=== PATIENT | male | born 1945 | race Caucasian/White ===

== ENCOUNTER 2023-04-03 20:11 | Inpatient (IN) | payer MEDICARE, OTHER, SELFPAY ==
[2023-04-03] VITALS (12 sets, daily range): BP systolic 119–162; BP diastolic 80–124; BMI 23.7; BMI 22.7
[2023-04-03 17:05] LABS: % Basophils 0.8 % (0-2); % Eosinophils 0.7 % (0-6); % Immature Granulocytes 0.3 % (0-0.5); % Monocytes 12.5 % (1.7-9.3); % Neutrophils 63.7 % (42.2-75.2); Absolute Basophils 0.1 10^3/uL (0-0.2); Absolute Eosinophils 0.1 10^3/uL (0-0.7); Absolute Lymphocytes 1.7 10^3/uL (1.2-3.4); Absolute Monocytes 0.9 10^3/uL (0.1-0.6); Absolute Neutrophils 4.8 10^3/uL (1.4-6.5); Hematocrit 42.3 % (39.0-52.0); Hemoglobin 14.8 g/dL (13.0-18.0); Mean Corpuscular Hgb 33.6 pg (27.0-31.0); Mean Corpuscular Volume 96.1 fL (80.0-94.0); Mean Platelet Volume 9.1 fL (7.4-10.4); Nucleated Red Blood Cells % 0 % (-); Platelet Count 317 10^3/uL (130-400); Red Cell Dist. Width 13.4 % (11.5-14.5); White Blood Cell Count 7.6 10^3/uL (4.8-10.8)
[2023-04-03 17:14] LABS: INR 1.33; PT 16.6 Sec (11.4-14.6)
[2023-04-03 17:21] LABS: ALT (SGPT) 122 U/L (0-50); AST (SGOT) 71 U/L (17-59); Albumin 3.9 g/dl (3.5-5.0); Alkaline Phosphatase 70 U/L (38-126); Blood Urea Nitrogen 30 mg/dl (9-20); Calcium 9.8 mg/dl (8.4-10.2); Carbon Dioxide 25 mmol/L (22-30); Chloride 99 mmol/L (98-107); Estimated Creatinine Clearance 55 ml/min; Glucose 125 mg/dl (70-99); Potassium 4.8 mmol/L (3.5-5.1); Sodium 137 mmol/L (135-145); Total Bilirubin 1.2 mg/dl (0.2-1.3); Total Protein 6.4 g/dl (6.3-8.2); eGFR > 60.00
[2023-04-03] MEDS: CARDIZEM 125 IV (17:31)
[2023-04-03] MEDS: CARDIZEM 10 MG IV (17:31)
[2023-04-03 17:35] LABS: Troponin I 0.044 ng/ml
[2023-04-03 18:13] LABS: NT-proBNP 7380 pg/ml
[2023-04-03] MEDS: LASIX 40 MG IV (19:15)
--- NOTE | 2023-04-03 19:56 | HPS.HSE ---
Family Physician
-
Family Physician: Idalia Barkdsale
Chief Complaint
-
SOB
History of Present Illness
Patient is a 77y M with PMH significant for prior episode of A-Fib who presents to ED complaining of SOB and SCOTT. Patient states that he initially developed symptoms of SOB and SCOTT about 1 1/2 weeks ago. He noted occasional chest pressure or
heaviness. No palpitations. No diaphoresis, N/V, etc. Patient was seen by his PCP last week and noted to be in A-Fib. He was started on metoprolol and Eliquis and referred for outpatient Cardiology evaluation. Patient states that his SOB seemed
to progress and he presented to [facility] on Friday. He was admitted overnight and treated with IV medications - including diuretics. He states that he felt well on Friday and Friday of this week. However, his SOB and SCOTT returned
yesterday and were worse today, prompting him to present to this ED for evaluation.
Patient was noted to be in A-Fib with initial rates in the 140s.
Patient states that he had an isolated episode of A-Fib in 2020. He states that he had chemical cardioversion at that time and has had no issues since.
He has no other chronic health issues and takes no other prescription medications.
Medical History
Past Medical History
Past Medical History: Reports Other
Additional Past Medical History:
Paroxysmal Atrial Fibrillation
CHF - Unknown Type
Past Surgical History: Reports Other
Additional Past Surgical History:
Herniorrhaphy
Social History
Tobacco: Non-smoker
Alcohol: None
Drug: None
Family History
Family History: Not pertinent
Allergies / Home Medications
Allergies reflects when Allergies were last updated in [employer]
Home Medications with original date entered in [employer]
Allergy/Medication List:
Allergies
Allergy/AdvReac Type Severity Reaction Status Date / Time
No Known Allergies Allergy Unverified 04/03/23 16:35
Home Medications
apixaban 5 mg tablet 5 mg PO BID 04/03/23
metoprolol succinate 50 mg tablet,extended release 24 hr 50 mg PO DAILY 04/03/23
Review of Systems
-
History Source: Patient
A 12 point ROS was completed and negative except as noted: Yes
Constitutional: Reports Fatigue; Denies Fever or Chills
EENT: Denies Sore Throat
Respiratory: Reports Trouble Breathing; Denies Cough
Cardiac: Reports Chest Pain; Denies Diaphoresis, Palpitations or Syncope
Abdomen/GI: Denies Abdominal Pain, Nausea, Vomiting or Diarrhea
: Denies Dysuria or Frequency
Musculoskeletal: Denies Edema
Neurological: Denies Dizzy or Headache
Psych: Denies Depression or Anxiety
Physical Exam
Vital Signs
Vital Signs
Temp Pulse Resp BP Pulse Ox
97.8 F 101 30 134/103 91
04/03/23 16:36 04/03/23 19:15 04/03/23 17:45 04/03/23 19:15 04/03/23 17:45
Physical Exam
General: Other (77y M in no acute distress.)
HEENT: Moist mucous membranes and PERRLA
Respiratory: Other (Bibasilar rales about 1/3 up.)
Cardiac: S1/S2, Irregular Rhythm and Tachycardia; No Murmur
GI: Soft, Non Tender, Non Distended and Normal Bowel Sounds
Musculoskeletal: No Clubbing, No Cyanosis and No Edema
Neuro: AO x 3
Laboratory Results
-
04/03/23 16:57
04/03/23 17:24
Laboratory Results
PT 16.6 Sec (11.4-14.6) H 04/03/23 16:57
INR 1.33 04/03/23 16:57
APTT 31.0 Sec (23.4-35.0) 04/03/23 16:57
Total Bilirubin 1.2 mg/dl (0.2-1.3) 04/03/23 16:57
AST 71 U/L (17-59) H 04/03/23 16:57
ALT 122 U/L (0-50) H 04/03/23 16:57
Alkaline Phosphatase 70 U/L (38-126) 04/03/23 16:57
Troponin I Cancelled 04/03/23 17:24
Impression/Plan
-
A/P: Patient is a 77y M with PMH significant for prior A-Fib who presents to ED complaining of SOB and SCOTT.
Paroxysmal Atrial Fibrillation
- Admit for further evaluation and treatment.
- Diltiazem gtt started in the ED - taper per protocol.
- Continue daily metoprolol and titrate dosing as needed for rate control.
- Continue Eliquis for stroke risk reduction.
- Cardiology evaluation for additional options / recommendations.
Acute on Chronic HF - Unknown Type
Acute Hypoxemic Respiratory Insufficiency secondary to the above.
- Exam, CXR and BNP all consistent with pulmonary edema - likely secondary to A-Fib / RVR.
- Rate +/- rhythm control as noted above.
- Continue IV Lasix and follow I/Os, daily weights, etc.
- Follow for clinical improvement and wean O2 as able.
Abnormal Troponin
- Initial troponin is 0.044 with no prior or comparison.
- No evident ischemia on EKG.
- Patient does report chest pressure.
- Follow serial troponin and rule acute underlying ischemia.
- Daily ASA for now.
Elevated BP
- Likely secondary to volume overload.
- Patient denies any HTN / any medication use at all prior to recent issues /A-Fib.
- Follow for changes with diuresis and rate control meds.
Abnormal LFTs
- Likely secondary to CHF / passive congestion.
- Follow for changes with diuresis.
DVT Prophylaxis: On Eliquis
Code Status: Full
[2023-04-03] MEDS: ELIQUIS 5 MG PO (21:40)
[2023-04-03 23:10] LABS: Troponin I 0.047 ng/ml
[2023-04-04] VITALS (8 sets, daily range): BP systolic 81–148; BP diastolic 80–99; BMI 22.6
--- NOTE | 2023-04-04 00:06 | PTCARENOTE ---
Received patient from the ED this PM at approximately 2130. He ambulated independently into the room with a steady gait. AAOx3. VSS. He is A-Fib on the monitor. HR in the 80s-90s. INT patent. Cardizem gtt running at 10mL/hr. He denies chest pain or
discomfort. Plan of care discussed. He is receptive to teaching and motivated. We discussed his medications. He had no further questions about these at this time. He denies pain and appears comfortable in bed. He understands to use his call whitfield for
assistance with ambulation to the bathroom with IV pole. Will continue to monitor.
[2023-04-04 03:59] LABS: Troponin I 0.044 ng/ml
[2023-04-04] MEDS: CARDIZEM 125 IV (05:45)
[2023-04-04 06:08] LABS: Hematocrit 37.8 % (39.0-52.0); Hemoglobin 13.4 g/dL (13.0-18.0); Mean Corp Hgb Conc. 35.4 g/dL (33.0-37.0); Mean Corpuscular Hgb 33.5 pg (27.0-31.0); Mean Corpuscular Volume 94.5 fL (80.0-94.0); Mean Platelet Volume 9.2 fL (7.4-10.4); Platelet Count 275 10^3/uL (130-400); Red Cell Dist. Width 13.2 % (11.5-14.5); White Blood Cell Count 6.7 10^3/uL (4.8-10.8)
[2023-04-04 06:18] LABS: ALT (SGPT) 105 U/L (0-50); AST (SGOT) 54 U/L (17-59); Albumin 3.4 g/dl (3.5-5.0); Alkaline Phosphatase 74 U/L (38-126); Blood Urea Nitrogen 27 mg/dl (9-20); Carbon Dioxide 26 mmol/L (22-30); Chloride 99 mmol/L (98-107); Direct Bilirubin 0.4 mg/dl (0.0-0.4); Estimated Creatinine Clearance 67 ml/min; Glucose 104 mg/dl (70-99); Potassium 3.8 mmol/L (3.5-5.1); Sodium 135 mmol/L (135-145); Total Bilirubin 1.2 mg/dl (0.2-1.3); Total Protein 5.7 g/dl (6.3-8.2); eGFR > 60.00
--- NOTE | 2023-04-04 08:37 | CON.CAR ---
Addendum entered and electronically signed by Rafa Choudhury MD 04/04/23 12:03:
77 yo male with paroxysmal A fib admitted with SOB. Exam: irregular rhythm. Tele: AFIB 80s.
A fib. May be persistent now. Stop IV diltiazem. Increase metoprolol to 100mg. Continue eliquis 5mg bid.
Assess for thoracentesis.
Acute HF, unknown type. Check echo. Continue IV lasix.
Original Note:
Consultation
Consultation Request
Date/Time Consultation Requested: 04/03/23 8:45p
Date/Time Consultation Performed: 04/04/23 8:15a
Requesting Provider: Dr. Zamora
Performing Provider: MIREYA Schwarz for Dr. Choudhury
Reason for Consultation: Afib, sob
Medical History
-
Chief Complaint: sob
History of Present Illness:
Mr. Knutson is a 77 yo male with paroxysmal Afib on Eliquis and Toprol, who presents to the ER with c/o SOB/SCOTT and rapid heart rates. He states seeing his PCP 2 weeks ago for SOB/SCOTT and was noted to be in Afib therefore started on Eliquis and
Toprol. He was admitted at [facility] last Friday for continued SOB/SCOTT, records have been requested. He thinks they gave him IV Lasix for CHF but is unsure if echo was performed and unknown EF, he was d/c home the next day. 2 days ago he began
feeling SOB again and noted some mild chest discomfort feeling, his friend is a nurse and came over to his house yesterday to check him out. She found him to have a rapid heart beat and she brought him into the ER. EKG in ER showed rapid Afib, he
was given IV Cardizem with improvement of rates into the 80s. He was also given IV Lasix for moderate b/l pleural effusions. Now he reports feeling better and denies chest discomfort. He reports having an episode of Afib in 09/2019 right after his
, he explains being seen in the ER and given IV meds with conversion to NSR. Since then has not had any recurrent episodes until now.
Past Medical History
Past Medical History: Arrhythmias (Afib ) and CHF
Past Surgical History: None
Social History
Tobacco: Non-Smoker
Alcohol: None
Personal:
Living: Alone
Employment: Retired
Family History
Family History: Reviewed & Not Pertinent
Allergies / Home Medications
Allergy/AdvReac Type Severity Reaction Status Date / Time
No Known Allergies Allergy Unverified 04/03/23 16:35
Medication Instructions Recorded Confirmed Type
apixaban 5 mg tablet 5 mg PO BID 04/03/23 04/03/23 History
metoprolol succinate 50 mg 50 mg PO DAILY 04/03/23 04/03/23 History
tablet,extended release 24 hr
Review of Systems
-
History Source: Patient
All other systems: Negative unless noted
Physical Exam
Vital Signs
Temp Pulse Resp BP Pulse Ox
97.5 F 86 16 129/88 95
04/04/23 07:21 04/04/23 07:21 04/04/23 07:21 04/04/23 04:26 04/04/23 07:21
Lab Results
04/04/23 05:57
04/04/23 05:57
Troponin I 0.044 ng/ml H* 04/04/23 03:23
Nnr-I-Nrhrlpzivai Pept Cancelled 04/03/23 17:24
Physical Exam
General: Well Developed, Well Nourished and No Apparent Distress
HEENT: Normocephalic, Anicteric and Moist Mucous Membranes
Respiratory: Non Labored Respirations and Other (diminished b/l bases)
Cardiac: S1/S2 and Irregular Rhythm
Breast: Deferred by me
GI: Soft, Non Distended and Normal Bowel Sounds
Rectal: Deferred by Provider
Genito-urinary: No Costovertebral Tender
Musculoskeletal: No Clubbing, No Cyanosis and No Edema
Skin: Warm and Dry
Neuro: AO x 3
Hematologic/Lymphatic: No Lymphadenopathy
Psych: Calm
Impression / Plan
-
Afib - rapid ventricular response.
- initial episode 09/2019, converted after IV meds (details unknown), no recurrence until 2 weeks ago.
- recurrent rapid rates 2 weeks ago treated with Toprol 50mg daily and Eliquis 5mg BID by PCP.
- seen at [facility] last week for Afib/CHF, records requested.
- rates improved with IV Diltiazem drip, now in the 80s and asymptomatic.
- stop IV Diltiazem drip, increase Toprol to 100mg daily and monitor.
- check echo today.
- continue Eliquis 5mg BID, [id number] VASc score is 3 (age > 75, CHF).
- outpatient ischemic evaluation in follow up.
CHF - unknown EF and etiology.
- agree with IV Lasix.
- monitor daily weights, I&Os, fluid/sodium restrictions.
- CXR suggests moderate CHF with moderate bilateral pleural effusions. Suspected moderate bibasilar pneumonia as well.
- check echo today.
Acute non-ischemic myocardial injury - in the setting of rapid Afib and CHF.
- troponin trend 0.044, 0.047, 0.044.
- denies any symptoms currently.
- check echo.
Data Reviewed
-
EKG: Tracing Personally Visualized and interpreted (initial EKG Afib RVR 127 bpm, EKG today Afib 77 bpm)
Radiology: Report Reviewed by me (cxr suggests moderate CHF with moderate bilateral pleural effusions. Suspected moderate bibasilar pneumonia as well.)
Labs: Labs Reviewed by me
Old Records: Requested ([facility] last week)
[2023-04-04] MEDS: TOPROL XL 50 MG PO ×2 (08:58→09:56)
[2023-04-04] MEDS: ELIQUIS 5 MG PO ×2 (08:58→20:56)
[2023-04-04] MEDS: LASIX 40 MG IV ×2 (08:59→16:25)
[2023-04-04] MEDS: LOW STRENGTH ASPIRIN 81 MG PO (08:59)
--- NOTE | 2023-04-04 09:50 | W.PN.HOSP.TC ---
Today's Communication/Plan
-
see A/P
Assessment / Plan
Assessment / Plan
HPI:�77y M with PMH significant for prior episode of A-Fib who presented to ED complaining of SOB and SCOTT. Symptom started 1 1/2 weeks ago.�
He noted occasional chest pressure or heaviness.� No palpitations.� No diaphoresis, N/V, etc.�
Patient was seen by his PCP the week prior and noted to be in A-Fib.�He was started on metoprolol and Eliquis and referred for outpatient Cardiology.�
Patient states that his SOB seemed to progress and he presented to [facility] on Friday.�
He was admitted overnight and treated with IV medications - including diuretics.� He states that he felt well on Friday and Friday of this week.�
However, his SOB and SCOTT returned and was worse, prompting him to present to this ED for evaluation.
Patient was noted to be in A-Fib with initial rates in the 140s.
Patient states that he had an isolated episode of A-Fib in 2020.� He states that he had chemical cardioversion at that time and has had no issues since.
He has no other chronic health issues and takes no other prescription medications.
A/P:
# Paroxysmal Atrial Fibrillation
s/p Diltiazem gtt
Continue daily metoprolol 100 mg daily, titrate dosing as needed for rate control.
Continue Eliquis for stroke risk reduction.
Cardiology evaluation for additional options / recommendations.
# Acute on Chronic HF - Unknown Type
# Acute Hypoxemic Respiratory Insufficiency secondary to the above, resolved
# BL pleural effusion
CXR and BNP all consistent with pulmonary edema - likely secondary to A-Fib / RVR. Rate +/- rhythm control as noted above.
Continue IV Lasix 40 IV BID ; follow I/Os, daily weights, etc.
Check echo
Weaned off O2.
IR CS for BL thoracentesis
# Non-ND Troponin elevation
Troponin plateaued at 0.04
No evident ischemia on EKG.
Patient does report chest pressure.
Cont daily ASA
# Elevated BP, likely secondary to volume overload.
Patient denies any HTN / any medication use at all prior to recent issues /A-Fib.
Follow for changes with diuresis and rate control meds.
BP now stable
# Abnormal LFTs, likely secondary to CHF / passive congestion.
LFT improving with diuresis.
DVT Prophylaxis:�On Eliquis
Code Status: Full
DW RN
Anticipated Discharge: > 48 hours
Subjective/Interval History
-
Date of Service: April 04, 2023
Objective Data
-
Labs:
Laboratory Results
04/04/23
05:57
WBC 6.7
Hgb 13.4
Hct 37.8 L
Plt Count 275
Sodium 135
Potassium 3.8
Chloride 99
Carbon Dioxide 26
BUN 27 H
Creatinine 0.9
Glucose 104 H
Calcium 9.0
Total Bilirubin 1.2
AST 54
ALT 105 H
Alkaline Phosphatase 74
Vital Signs:
Vital Signs
Temp Pulse Resp BP Pulse Ox
36.4 C 75 16 118/85 95
04/04/23 07:21 04/04/23 08:45 04/04/23 07:21 04/04/23 07:21 04/04/23 07:21
I&O
04/03/23 04/04/23 04/05/23
06:59 06:59 06:59
Intake Total 565 / 565
Output Total 1100 / 1100
Balance -535 / -535
Review of Systems
-
All other systems: Reviewed and negative
Physical Exam
-
General: Well Developed, Well Nourished, No Apparent Distress, Comfortable and Conversant; Negative Respiratory Distress
HEENT: Normocephalic, Atraumatic, Nose Appears Normal and Ears Appear Normal; Negative Oxygen
Respiratory: Clear to Auscultation, Crackles (mild at bases) and Non Labored Respirations; Negative Accessory Resp Muscle Use
Cardiac: S1/S2 and Irregular Rhythm; Negative Murmur
GI: Soft, Nontender, Nondistended and Normal Bowel Sounds
Skin: Warm and Dry
Neuro: Awake, Alert, Oriented, AO x 3 and Nonfocal/Grossly Intact
Psych: Calm and Intact Judgement/Insight
Data Reviewed
-
Diagnostic Radiology: Image personally visualized and interpreted and Report Reviewed by me
Labs: Labs Reviewed by me
[2023-04-04 10:58] LABS: LDH 322 U/L (120-246); Total Protein 6.7 g/dl (6.3-8.2)
--- NOTE | 2023-04-04 11:24 | PTCARENOTE ---
Pt to IR for Thoracentesis.
[2023-04-04 12:53] LABS: Body Fluid pH 7.52
[2023-04-04 12:59] LABS: Body Fluid LDH 106 U/L; Body Fluid Protein < 2.0 g/dl
[2023-04-04 13:16] LABS: Body Fluid Mononuclear 95.1 %; Body Fluid Polymorphonuclear 4.9 %; Body Fluid WBC 143 /CUMM
--- NOTE | 2023-04-04 13:31 | CM ---
CM following for DC planning needs.
Met w/ patient at bedside to complete initial assessment.
Pt. resides alone in a private, 1 story home. He is functionally indep. at baseline w/ ADLs, mobility without the use of any assisted device.
Pt. has a supportive neighbor, who is a RN that assists (brought him to ).
Anticipated DC plan is for home without needs versus VN.
Will follow.
[2023-04-04 13:32] LABS: Body Fluid Second Tech AMA
--- NOTE | 2023-04-04 16:45 | CM ---
Recd consult to Edith Plunkett Farxiga.
[place] [facility] [phone], ID# [id number]. Long wait time, no response after 20 + min.
Per MIREYA, will have CATH on Friday. Will try again to serna medication.
--- NOTE | 2023-04-04 22:09 | PTCARENOTE ---
Received patient at change of shift this PM. AAOx3. VSS. He is A-Fib/Flutter on the monitor. HR in the 80s-90s. INT patent. Cardizem drip was discontinued today during dayshift. He denies chest pain or discomfort. Plan of care discussed with
patient. He is receptive to teaching and motivated. He understands that the plan is going to be to go to the cardiac dairy lab technician on Friday (04/07). We discussed his medications and he has no further questions about these at this time. He denies pain and
appears comfortable in bed at this time. He is ambulating independently and understands to use his call whitfield for assistance with needs. Will continue to monitor.
[2023-04-05] VITALS (12 sets, daily range): BP systolic 96–143; BP diastolic 71–111; BMI 21.5
[2023-04-05 02:34] LABS: Hematocrit 39.5 % (39.0-52.0); Hemoglobin 14.1 g/dL (13.0-18.0); Mean Corp Hgb Conc. 35.7 g/dL (33.0-37.0); Mean Corpuscular Hgb 33.8 pg (27.0-31.0); Mean Corpuscular Volume 94.7 fL (80.0-94.0); Mean Platelet Volume 9.4 fL (7.4-10.4); Platelet Count 282 10^3/uL (130-400); Red Blood Cell Count 4.17 10^6/uL (4.70-6.10); White Blood Cell Count 8.2 10^3/uL (4.8-10.8)
[2023-04-05 03:01] LABS: ALT (SGPT) 104 U/L (0-50); AST (SGOT) 53 U/L (17-59); Albumin 3.4 g/dl (3.5-5.0); Alkaline Phosphatase 73 U/L (38-126); Blood Urea Nitrogen 26 mg/dl (9-20); Calcium 9.2 mg/dl (8.4-10.2); Carbon Dioxide 29 mmol/L (22-30); Chloride 97 mmol/L (98-107); Direct Bilirubin 0.3 mg/dl (0.0-0.4); Estimated Creatinine Clearance 67 ml/min; Glucose 98 mg/dl (70-99); Potassium 3.5 mmol/L (3.5-5.1); Sodium 135 mmol/L (135-145); Total Bilirubin 1.2 mg/dl (0.2-1.3); Total Protein 5.8 g/dl (6.3-8.2); eGFR > 60.00
[2023-04-05] MEDS: TOPROL XL 100 MG PO (08:59)
[2023-04-05] MEDS: ELIQUIS 5 MG PO (09:00)
[2023-04-05] MEDS: LOW STRENGTH ASPIRIN 81 MG PO (09:00)
[2023-04-05] MEDS: LASIX 40 MG IV ×2 (09:00→15:27)
--- NOTE | 2023-04-05 09:25 | W.PN.CD ---
Today's Communication / Plan
-
add entresto
continue IV lasix
cath Friday
Impression / Plan
-
Cardiomyopathy, new, unspecified type
-echo 04/04: EF 20%, moderate MR, moderate (25/15, 1.3), mild/mod TR, PASP 50
-plan for cath friday for coronary evaluation
-may be due to A fib with RVR
-continue Toprol XL 100mg bid
-add entresto 24/26mg bid
-SGLT2i and aldactone: assess post cath
Acute systolic HF, severe, requiring close monitoring of labs and tele
-continue lasix 40mg IV bid
Afib - rapid ventricular response. May be persistent.
-Toprol XL for rate control
-assess for OJE/DCCV post cath
-CHADS2-VASC = 3. Eliquis 5mg bid (will hold and use heparin prior to cath)
Valvular HD
-moderate MR, moderate , mild/mod TR
-diurese
Acute non-ischemic myocardial injury - in the setting of rapid Afib and CHF.
- troponin trend 0.044, 0.047, 0.044.
Physical Exam
Vital Signs/Labs
Vital Signs
Temp Pulse Resp BP Pulse Ox
97.4 F 129 18 143/102 98
04/05/23 08:02 04/05/23 09:00 04/05/23 08:02 04/05/23 09:00 04/05/23 08:02
04/04/23 04/05/23 04/06/23
06:59 06:59 06:59
Actual Weight 67.4 kg 64 kg
04/05/23 02:09
04/05/23 02:09
PT 16.6 Sec (11.4-14.6) H 04/03/23 16:57
INR 1.33 02/08/24 16:57
APTT 31.0 Sec (23.4-35.0) 04/03/23 16:57
Magnesium 2.0 mg/dl (1.6-2.3) 04/05/23 02:09
04/03/23 04/03/23
16:57 17:24
Sts-V-Zpqlvubtmro Pept 7380 Cancelled
LAB Results
04/03/23 04/03/23 04/03/23
16:57 17:24 20:45
Troponin I 0.044 H* Cancelled Cancelled
04/03/23 04/04/23 04/04/23
22:38 03:23 10:31
Troponin I 0.047 H* 0.044 H* 0.040 H*
Physical Exam
Constitutional: No acute distress and Comfortable
EENT: Moist mucous membranes
Cardiovascular: Pedal edema is absent, Rhythm/rate is irregular, JVD present and Systolic murmur present
Respiratory: Respiratory effort normal and Lungs clear to auscul.
GI: Soft, Distention absent and Flat
Neuro/Psych: AO x 3
Data Reviewed
-
Date of Service: April 05, 2023
EKG: Other (Tele: A fib 90s, RVR with activity)
Echo: Tracing Personally Visualized and interpreted (per note)
Labs: Labs Reviewed by me
--- NOTE | 2023-04-05 09:30 | PTCARENOTE ---
Pt AAOx3, ambulatory in room without complaints. Afib on telemetry monitor, hr 120-140s. BP 140/100, Dr. Choudhury aware, orders to follow. Medications administered as ordered. Pt denies cp/sob at this time. Will continue to monitor.
--- NOTE | 2023-04-05 09:40 | W.PN.HOSP.TC ---
Today's Communication/Plan
-
see A/P
Assessment / Plan
Assessment / Plan
HPI:�77y M with PMH significant for prior episode of A-Fib who presented to ED complaining of SOB and SCOTT. Symptom started 1 1/2 weeks ago.�
He noted occasional chest pressure or heaviness.� No palpitations.� No diaphoresis, N/V, etc.�
Patient was seen by his PCP the week prior and noted to be in A-Fib.�He was started on metoprolol and Eliquis and referred for outpatient Cardiology.�
Patient states that his SOB seemed to progress and he presented to [facility] on Friday.�
He was admitted overnight and treated with IV medications - including diuretics.� He states that he felt well on Friday and Friday of this week.�
However, his SOB and SCOTT returned and was worse, prompting him to present to this ED for evaluation.
Patient was noted to be in A-Fib with initial rates in the 140s.
Patient states that he had an isolated episode of A-Fib in 2019.� He states that he had chemical cardioversion at that time and has had no issues since.
He has no other chronic health issues and takes no other prescription medications.
A/P:
# Permanent Atrial Fibrillation
s/p Diltiazem gtt
Continue metoprolol 100 mg daily
Eliquis -> heparin drip prior to cardiac cath Friday
Cardiology on board
# Acute on Chronic systolic heart failure
# Acute Hypoxemic Respiratory Insufficiency secondary to the above, resolved
# BL pleural effusion
Echo with severely reduced left ventricular systolic function. EF 20%. Global hypokinesis. Moderate mitral regurgitation. Moderate aortic stenosis
Cont Toprol as above
Continue IV Lasix 40 IV BID; follow I/Os, daily weights, etc.
Added Entresto
s/p IR R thoracentesis 04/04: transudative fluid
To consider IR L thoracentesis
cath Friday per Card
# Non-AZ Troponin elevation
Troponin plateaued at 0.04
No evident ischemia on EKG.
Patient does report chest pressure.
Cont daily ASA
# Elevated BP, likely secondary to volume overload.
Patient denies any HTN / any medication use at all prior to recent issues /A-Fib.
Follow for changes with diuresis and rate control meds.
BP now stable
# Abnormal LFTs, secondary to CHF / passive congestion.
LFT improving with diuresis.
DVT Prophylaxis: heparin drip
Code Status: Full
Anticipated Discharge: > 48 hours
Subjective/Interval History
-
Date of Service: April 05, 2023
Objective Data
-
Labs:
Laboratory Results
04/05/23 04/05/23
02:09 16:00
WBC 8.2
Hgb 14.1
Hct 39.5
Plt Count 282
APTT Pending
Sodium 135
Potassium 3.5
Chloride 97 L
Carbon Dioxide 29
BUN 26 H
Creatinine 0.9
Glucose 98
Calcium 9.2
Total Bilirubin 1.2
AST 53
ALT 104 H
Alkaline Phosphatase 73
Vital Signs:
Vital Signs
Temp Pulse Resp BP Pulse Ox
36.3 C 129 18 143/102 98
04/05/23 08:02 04/05/23 09:00 04/05/23 08:02 04/05/23 09:00 04/05/23 08:02
I&O
04/04/23 04/05/23 04/06/23
06:59 06:59 06:59
Intake Total 565 / 565 480 / 480
Output Total 1100 / 1100
Balance -535 / -535 480 / 480
Review of Systems
-
All other systems: Reviewed and negative
Physical Exam
-
General: Well Developed, Well Nourished, No Apparent Distress, Comfortable and Conversant; Negative Respiratory Distress
HEENT: Normocephalic, Atraumatic, Nose Appears Normal and Ears Appear Normal; Negative Oxygen
Respiratory: Clear to Auscultation, Crackles (mild at bases) and Non Labored Respirations; Negative Accessory Resp Muscle Use
Cardiac: S1/S2 and Irregular Rhythm; Negative Murmur
GI: Soft, Nontender, Nondistended and Normal Bowel Sounds
Skin: Warm and Dry
Neuro: Awake, Alert, Oriented, AO x 3 and Nonfocal/Grossly Intact
Psych: Calm and Intact Judgement/Insight
Data Reviewed
-
Diagnostic Radiology: Image personally visualized and interpreted and Report Reviewed by me
Labs: Labs Reviewed by me
--- NOTE | 2023-04-05 11:32 | W.PN.UPDATE ---
Update Note
Progress Note Update
- L thora: 700 mL straw colored fluid removed. No complications.
[2023-04-05] MEDS: ENTRESTO 24 MG/26 MG 1 TAB PO ×2 (11:53→22:32)
--- NOTE | 2023-04-05 11:55 | PTCARENOTE ---
Received patient from IR s/p L thoracentesis. L mid-back bandaid c/d/i. VSS, afib with pvcs on environmental monitoring specialist. pox 96% room air. Pt ambulatory in room, no dyspnea. pt denies cough/sob at this time. BP 127/101- Entresto given late due to patient
being in IR for procedure. Pt instructed to call for sob, dyspnea, bleeding or any s/s of respiratory distress. Will continue to monitor.
[2023-04-05 16:00] LABS: APTT 31.8 Sec (23.4-35.0)
[2023-04-05] MEDS: HEPARIN 25000 UNITS/250 ML IV (17:27)
--- NOTE | 2023-04-05 19:15 | PTCARENOTE ---
Patient AAOx3, without complaints. Afib on environmental monitoring specialist, VSS. Medications administered as ordered. Heparin gtt initiated as ordered, for ptt 2330.
Pt ambulatory in room and yan. Tolerating PO intake, voiding without issues, +BM today. Will continue to monitor.
[2023-04-05] MEDS: FLUSH (NSS) 1 FLUSH IV (21:02)
--- NOTE | 2023-04-05 23:23 | PTCARENOTE ---
Received patient at change of shift this PM. AAOx3. VSS. He is A-Fib on the monitor. HR in the 80s-90s. INT patent. Heparin drip running at 8mL/hr. He denies chest pain or discomfort. Plan of care discussed. He is receptive to teaching and
motivated. We discussed his medications and he has no further questions about these at this time. He denies pain and appears comfortable in bed. Will continue to monitor.
[2023-04-05 23:53] LABS: APTT 47.8 Sec (23.4-35.0)
[2023-04-06] VITALS (11 sets, daily range): BP systolic 83–115; BP diastolic 51–90; BMI 20.8
[2023-04-06 06:25] LABS: Hematocrit 42.1 % (39.0-52.0); Hemoglobin 15.5 g/dL (13.0-18.0); Mean Corp Hgb Conc. 36.8 g/dL (33.0-37.0); Mean Corpuscular Hgb 34.2 pg (27.0-31.0); Mean Corpuscular Volume 92.9 fL (80.0-94.0); Mean Platelet Volume 9.3 fL (7.4-10.4); Platelet Count 304 10^3/uL (130-400); Red Blood Cell Count 4.53 10^6/uL (4.70-6.10); Red Cell Dist. Width 12.8 % (11.5-14.5); White Blood Cell Count 7.8 10^3/uL (4.8-10.8)
[2023-04-06 06:28] LABS: APTT 61.2 Sec (23.4-35.0)
[2023-04-06 06:38] LABS: ALT (SGPT) 82 U/L (0-50); AST (SGOT) 36 U/L (17-59); Albumin 3.4 g/dl (3.5-5.0); Alkaline Phosphatase 81 U/L (38-126); Blood Urea Nitrogen 27 mg/dl (9-20); Calcium 8.5 mg/dl (8.4-10.2); Carbon Dioxide 27 mmol/L (22-30); Chloride 98 mmol/L (98-107); Direct Bilirubin 0.4 mg/dl (0.0-0.4); Estimated Creatinine Clearance 61 ml/min; Glucose 95 mg/dl (70-99); Sodium 132 mmol/L (135-145); Total Bilirubin 1.2 mg/dl (0.2-1.3); Total Protein 5.8 g/dl (6.3-8.2); eGFR > 60.00
[2023-04-06] MEDS: LOW STRENGTH ASPIRIN 81 MG PO (08:28)
[2023-04-06] MEDS: LASIX 40 MG IV ×2 (08:28→16:09)
[2023-04-06] MEDS: KCL 40 MEQ PO (08:28)
[2023-04-06 08:33] LABS: Glycohemoglobin (HgbA1c) 5.5 % (4.0-5.6)
--- NOTE | 2023-04-06 09:16 | W.PN.CD ---
Today's Communication / Plan
-
plan for cath friday for coronary evaluation
then will likely need JOE/DCCV this admission
Impression / Plan
-
Cardiomyopathy, new, unspecified type
-echo 04/04: EF 20%, moderate MR, moderate (25/15, 1.3), mild/mod TR, PASP 50
-plan for cath friday for coronary evaluation
-may be due to A fib with RVR
-continue Toprol XL 100mg bid
-added entresto 24/26mg bid 04/05: will continue if BP allows
-SGLT2i and aldactone: assess post cath
Acute systolic HF, severe, requiring close monitoring of labs and tele
-continue lasix 40mg IV bid
Afib - rapid ventricular response. May be persistent.
-Toprol XL for rate control
-assess for JOE/DCCV post cath
-CHADS2-VASC = 3. Eliquis 5mg bid (will hold and use heparin prior to cath)
Valvular HD
-moderate MR, moderate , mild/mod TR
-diurese
Acute non-ischemic myocardial injury - in the setting of rapid Afib and CHF.
- troponin trend 0.044, 0.047, 0.044.
Physical Exam
Vital Signs/Labs
Vital Signs
Temp Pulse Resp BP Pulse Ox
97.2 F 100 18 96/51 98
04/06/23 06:59 04/06/23 08:28 04/06/23 06:59 04/06/23 08:28 04/06/23 06:59
04/05/23 04/06/23 04/07/23
06:59 06:59 06:59
Actual Weight 64 kg 62.1 kg
04/06/23 06:01
04/06/23 06:01
PT 16.6 Sec (11.4-14.6) H 04/03/23 16:57
INR 1.33 04/03/23 16:57
APTT 61.2 Sec (23.4-35.0) H 04/06/23 06:01
Magnesium 2.0 mg/dl (1.6-2.3) 04/06/23 06:01
04/03/23 04/03/23
16:57 17:24
Dls-R-Ohhnjjpzxeg Pept 7380 Cancelled
LAB Results
04/03/23 04/03/23 04/03/23
16:57 17:24 20:45
Troponin I 0.044 H* Cancelled Cancelled
04/03/23 04/04/23 04/04/23
22:38 03:23 10:31
Troponin I 0.047 H* 0.044 H* 0.040 H*
Physical Exam
Constitutional: No acute distress and Comfortable
EENT: Moist mucous membranes
Cardiovascular: Pedal edema is absent, Rhythm/rate is irregular, JVD present and Systolic murmur present
Respiratory: Respiratory effort normal and Lungs clear to auscul.
GI: Soft and Distention absent
Neuro/Psych: AO x 3
Data Reviewed
-
Date of Service: April 06, 2023
EKG: Other (Tele: A fib avg 100, RVR with activity)
Labs: Labs Reviewed by me
[2023-04-06] MEDS: TOPROL XL 100 MG PO (09:48)
--- NOTE | 2023-04-06 10:16 | W.PN.HOSP.TC ---
Today's Communication/Plan
-
see AP
Assessment / Plan
Assessment / Plan
HPI:�77y M with PMH significant for prior episode of A-Fib who presented to ED complaining of SOB and SCOTT. Symptom started 1 1/2 weeks ago.�
He noted occasional chest pressure or heaviness.� No palpitations.� No diaphoresis, N/V, etc.�
Patient was seen by his PCP the week prior and noted to be in A-Fib.�He was started on metoprolol and Eliquis and referred for outpatient Cardiology.�
Patient states that his SOB seemed to progress and he presented to [facility] on Friday.�
He was admitted overnight and treated with IV medications - including diuretics.� He states that he felt well on Friday and Friday of this week.�
However, his SOB and SCOTT returned and was worse, prompting him to present to this ED for evaluation.
Patient was noted to be in A-Fib with initial rates in the 140s.
Patient states that he had an isolated episode of A-Fib in 2019.� He states that he had chemical cardioversion at that time and has had no issues since.
He has no other chronic health issues and takes no other prescription medications.
A/P:
# Permanent Atrial Fibrillation
s/p Diltiazem gtt
Continue metoprolol 100 mg daily with holding parameter
Eliquis -> heparin drip prior to cardiac cath Friday
Cardiology on board
# Acute on Chronic systolic heart failure
# Acute Hypoxemic Respiratory Insufficiency secondary to the above, resolved
# BL pleural effusion
Echo with severely reduced left ventricular systolic function. EF 20%. Global hypokinesis. Moderate mitral regurgitation. Moderate aortic stenosis
Cont Toprol as above
Continue IV Lasix 40 BID; follow I/Os, daily weights, etc.
Added Entresto with holding parameter
s/p IR Right thoracentesis 04/04: transudative fluid , s/p IR Left thoracentesis 04/05
cath Friday per Card
# Non-IN Troponin elevation
Troponin plateaued at 0.04
No evident ischemia on EKG.
Patient does report chest pressure.
Cont daily ASA
# Elevated BP, likely secondary to volume overload.
Patient denies any HTN / any medication use at all prior to recent issues /A-Fib.
Follow for changes with diuresis and rate control meds.
BP now stable
# Abnormal LFTs, secondary to CHF / passive congestion.
LFT improving with diuresis.
DVT Prophylaxis: heparin drip
Code Status: Full
DW RN
Anticipated Discharge: 24 - 48 hours
Subjective/Interval History
-
Date of Service: April 06, 2023
Objective Data
-
Labs:
Laboratory Results
04/05/23 04/06/23 04/06/23
23:36 06:01 12:40
WBC 7.8
Hgb 15.5
Hct 42.1
Plt Count 304
APTT 47.8 H 61.2 H Pending
Sodium 132 L
Potassium 3.0 L
Chloride 98
Carbon Dioxide 27
BUN 27 H
Creatinine 0.9
Glucose 95
Calcium 8.5
Total Bilirubin 1.2
AST 36
ALT 82 H
Alkaline Phosphatase 81
Vital Signs:
Vital Signs
Temp Pulse Resp BP Pulse Ox
36.2 C 112 18 106/76 98
04/06/23 06:59 04/06/23 09:48 04/06/23 06:59 04/06/23 09:48 04/06/23 06:59
I&O
04/05/23 04/06/23 04/07/23
06:59 06:59 06:59
Intake Total 480 / 480 720 / 720
Output Total 100 / 100
Balance 480 / 480 620 / 620
Review of Systems
-
All other systems: Reviewed and negative
Physical Exam
-
General: Well Developed, Well Nourished, No Apparent Distress, Comfortable and Conversant; Negative Respiratory Distress
HEENT: Normocephalic, Atraumatic, Nose Appears Normal and Ears Appear Normal; Negative Oxygen
Respiratory: Clear to Auscultation and Non Labored Respirations; Negative Accessory Resp Muscle Use
Cardiac: S1/S2 and Irregular Rhythm; Negative Murmur
GI: Soft, Nontender, Nondistended and Normal Bowel Sounds
Skin: Warm and Dry
Neuro: Awake, Alert, Oriented, AO x 3 and Nonfocal/Grossly Intact
Psych: Calm and Intact Judgement/Insight
Data Reviewed
-
Diagnostic Radiology: Image personally visualized and interpreted and Report Reviewed by me
Labs: Labs Reviewed by me
[2023-04-06] MEDS: KCL 20 MEQ PO (11:04)
[2023-04-06] MEDS: ENTRESTO 24 MG/26 MG PO ×2 (11:11→19:27)
[2023-04-06] MEDS: TOPROL XL PO (11:39)
--- NOTE | 2023-04-06 11:47 | PTCARENOTE ---
pt had a 18 beat run of VT. pt tolerated, VSS. pt offers no complaints at this time. pt has been ambulating the halls with no issues. pt notified Dr. Choudhury of [place], no orders at this time. pt continues to be Afib on the monitor. Call whitfield within reach.
[2023-04-06 13:03] LABS: APTT 123.2 Sec (23.4-35.0)
[2023-04-06] MEDS: HEPARIN 25000 UNITS/250 ML IV (16:12)
--- NOTE | 2023-04-06 18:13 | PTCARENOTE ---
pt continues to be Afib on the monitor, HR in the 120s, VSS. Pt offers no complaints at this time. pt has been ambulating the halls with no issue. heparin gtt running per protocol, see documentation. pt educated on plan of care and pt verbalized
understanding. pt resting in bed comfortably. call whitfield within reach.
--- NOTE | 2023-04-06 21:39 | PTCARENOTE ---
Pt rec'd at change of shift awake,alert with no complaints. Afib on telemetry. b/p Entresto held per parameters. Pt asympt denies dizziness. Pt instructed to call nursing before getting oob. B/P retaken at 2042 improved pt assisted oob form
pm care. Pt sarah well no dizziness reported.
ptt drawn awaiting results Heparin currently at 1100 units/hr
[2023-04-06 21:59] LABS: APTT 100.5 Sec (23.4-35.0)
[2023-04-07] VITALS (14 sets, daily range): BP systolic 81–126; BP diastolic 56–94; BMI 21.1
[2023-04-07 04:46] LABS: Hematocrit 43.2 % (39.0-52.0); Mean Corp Hgb Conc. 34.7 g/dL (33.0-37.0); Mean Corpuscular Volume 95.2 fL (80.0-94.0); Mean Platelet Volume 9.1 fL (7.4-10.4); Platelet Count 292 10^3/uL (130-400); Red Blood Cell Count 4.54 10^6/uL (4.70-6.10); Red Cell Dist. Width 12.9 % (11.5-14.5)
[2023-04-07 04:59] LABS: APTT 133.6 Sec (23.4-35.0)
[2023-04-07 05:39] LABS: ALT (SGPT) 58 U/L (0-50); AST (SGOT) 25 U/L (17-59); Albumin 3.1 g/dl (3.5-5.0); Alkaline Phosphatase 67 U/L (38-126); Blood Urea Nitrogen 38 mg/dl (9-20); Calcium 8.9 mg/dl (8.4-10.2); Carbon Dioxide 30 mmol/L (22-30); Chloride 95 mmol/L (98-107); Direct Bilirubin 0.4 mg/dl (0.0-0.4); Estimated Creatinine Clearance 51 ml/min; Glucose 96 mg/dl (70-99); Magnesium 2.1 mg/dl (1.6-2.3); Potassium 3.6 mmol/L (3.5-5.1); Sodium 133 mmol/L (135-145); Total Bilirubin 0.9 mg/dl (0.2-1.3); Total Protein 5.4 g/dl (6.3-8.2); eGFR > 60.00
[2023-04-07] MEDS: ENTRESTO 24 MG/26 MG 1 TAB PO (07:47)
[2023-04-07] MEDS: LOW STRENGTH ASPIRIN 81 MG PO (07:48)
[2023-04-07] MEDS: TOPROL XL 100 MG PO (07:48)
[2023-04-07] MEDS: LASIX 40 MG IV ×2 (07:49→16:30)
--- NOTE | 2023-04-07 09:12 | PTCARENOTE ---
Assumed care of pt from night RN. Pt received awake and alert, Ox3. VSs, CM shows AF 80-90's, POX 99 % on RA. Heparin drip infusing through RAC at 900 u/hr, next PTT due at 1230. Pt remains NPO for CC today. He offers no c/o pain or discomfort,
ambulating around unit.
--- NOTE | 2023-04-07 10:10 | W.PN.CD ---
Today's Communication / Plan
-
Cardiac catheterization today.
Hold sacubitril/valsartan.
Start SGLT2i, MRA, possibly lisinopril 2.5 mg daily post cath.
Assess for JOE guided DCCV for tomorrow.
Impression / Plan
-
Impression/Plan: 77 y/o male with prior isolated episode of AF in 2019 s/p DCCV now admitted with recurrent atrial fibrillation, new cardiomyopathy (LVEF 20%) and decompensated HFrEF.
#Cardiomyopathy
-New diagnosis, unspecified type.
-Echo 04/04: EF 20%, moderate MR, moderate (25/15, 1.3), mild/mod TR, PASP 50.
-May be due to A fib with RVR.
-Continue metoprolol succinate 100mg bid.
-Hold sacubitril/valsartan due to hypotension. Patient may not tolerate, in which case we will use lisinopril 2.5 mg daily.
-Coronary angiography today to assess coronary anatomy.
-Start SGLT2i + MRA post cath.
#Acute HFrEF
-Severe, requiring close monitoring of labs and telemetry.
-S/P thoracentesis for 700 mL of transudative fluid.
-Assess LVEDP at cath today.
-Adjust furosemide as indicated.
#Afib
-Likely change in classification (persistent rather than paroxysmal).
-Metoprolol succinate for rate control.
-Assess for JOE/DCCV post cath.
-CHADS2-VASC = 3.
-Therapeutic anticoagulation with heparin gtt. Transition to apixaban 5mg bid post cath.
#Valvular HD
-New diagnosis.
-Moderate MR, moderate , mild/mod TR.
-Repeat echocardiogram in 90 days to assess systolic function, valve function under more optimized loading conditions.
#Acute non-ischemic myocardial injury
-In the setting of rapid Afib and CHF.
-Troponin trend = 0.044, 0.047, 0.044. This is not consistent with ACS.
Subjective/Interval History:
Hypotensive overnight. PM dose of sacubitril/valsartan held.
Weight is down 8 kg from admission.
HR hovering around 100.
DATA:
TTE, 04/04/2023:
CONCLUSIONS
�Severely reduced left ventricular systolic function. Left ventricular ejection
�fraction is 20%.
�Global hypokinesis.
�Mild concentric left ventricular hypertrophy.
�Moderate mitral regurgitation.
�Moderate aortic stenosis (gradients lower in setting of depressed LVEF).
�Peak/mean gradients ar 24/15 mmHg. Using an LVOT 2.1 cm the calculated valve
�area is 1.34 cm2. Mild aortic regurgitation.
�Enlarged right ventricular size. Normal right ventricular systolic function.
�Mild/moderate tricuspid regurgitation. Right heart pressures were moderately
�elevated. Estimated pulmonary artery pressure of 50 mmHg, assuming a right
�atrial pressure of 8 mmHg.
�Pleural effusion present.
�
�No prior study available for comparison.
Physical Exam
Vital Signs/Labs
Vital Signs
Temp Pulse Resp BP Pulse Ox
36.4 C 100 18 111/82 99
04/07/23 06:59 04/07/23 07:49 04/07/23 06:59 04/07/23 07:49 04/07/23 08:53
04/05/23 04/06/23 04/07/23
11:59 11:59 11:59
Actual Weight 64 kg 62.1 kg 62.8 kg
04/07/23 04:37
04/07/23 04:37
PT 16.6 Sec (11.4-14.6) H 04/03/23 16:57
INR 1.33 04/03/23 16:57
APTT 133.6 Sec (23.4-35.0) H 04/07/23 04:37
Magnesium 2.1 mg/dl (1.6-2.3) 04/07/23 04:37
04/03/23 04/03/23
16:57 17:24
Qmt-H-Ggflefdxaep Pept 7380 Cancelled
LAB Results
04/04/23
10:31
Troponin I 0.040 H*
Physical Exam
Constitutional: No acute distress and Comfortable
EENT: Anicteric and Moist mucous membranes
Cardiovascular: Pedal edema is absent, JVD pressure is normal, Rhythm/rate is irregular, Systolic murmur present and S1S2 is normal
Respiratory: Respiratory effort normal, Lungs clear to auscul., Wheeze Absent, Crackles Absent and Rhonchi Absent
GI: Soft, Distention absent, Flat, Non tender and Normal bowel sounds
Neuro/Psych: AO x 3
Data Reviewed
-
Date of Service: April 07, 2023
Medical Decision Making: Reviewed Test Results, Test Interpretation and Review of Case with other Provider
EKG: Tracing Personally Visualized and interpreted and Report Reviewed by me
Echo: Tracing Personally Visualized and interpreted and Report Reviewed by me
X-Ray/CT/US/MRI/NUC/PET: Image Personally Visualized and interpreted and Report Reviewed by me
Labs: Labs Reviewed by me
--- NOTE | 2023-04-07 12:06 | PTCARENOTE ---
Pt to CCL for heart cath.
--- NOTE | 2023-04-07 13:40 | ITS.CL.CATH ---
Follow Up Manager - Catheterization
Cardiac Catheterization
Procedure Report:
CARDIAC CATHETERIZATION REPORT
Date of Procedure: 04/07/2023
Referring: Rafa Choudhury M.D., Ph.D.
Indication: New cardiomyopathy.
PROCEDURE:
1. Right heart catheterization.
2. Left heart catheterization.
3. Coronary angiography.
ACCESS:
6 [place] right radial artery.
5 [place] right antecubital vein.
CATHETERS:
1. 5 [place] balloon wedge.
2. 5 [place] JL 3.5.
3. 5 [place] JR4.
HEMODYNAMIC DATA
Weight (kg): 62.6
AO (s/d/x mmHg): 97/60/74
LV (s/x mmHg): 120/8
PCWP (a/v/x mmHg): 11/
PA (s/d/x mmHg): 20/
RV (s/x mmHg): 23/5
RA (a/v/x mmHg): 8/7/
SVC SvO2 (%): 69.8
PA SvO2 (%): 68.0
SaO2 (%): 99.3
Hbg (g/dL): 15.3
CO (L/min): 3.23
CI (L/min/m2): 1.85
TPG (mmHg): 5
PVR (Hardin Units): 1.55
SVR (dynes*seconds*cm^-5): 1709
AVO2 Diff (Volume %): 6.51
AV gradient (x, mmHg): 24.2
AV area (cm2): 0.69
LEFT VENTRICULOGRAPHY: Not performed.
CORONARY ANGIOGRAPHY
Dominance: Right.
Left Main: Normal size, trifurcating vessel. There is no coronary artery disease.
LAD: Normal size vessel giving rise to 2 significant diagonals. There is a 30% lesion in the proximal margin of the second diagonal.
Ramus: Normal size vessel supplying a moderate portion of the lateral wall. There is no coronary artery disease.
Circumflex: Normal size vessel giving rise to 1 significant marginal. The vessel is severely angulated at its origin with a >90 degree retrograde bend. There is a 40% lesion in the mid section of the obtuse marginal.
RCA: Large size, dominant vessel with a significant posterolateral arcade. There is no coronary artery disease.
INTERVENTIONS
None.
Closure Device: Vascular band.
Radiation dose (mGy): 412.37
DAP (cm2.Gy): 31.9113
Fluoroscopy time (minutes): 3.3
Sedation time (minutes): 9
CONCLUSIONS:
1. Right dominant circulation with a 30% lesion in the proximal margin of the second diagonal, a severely angulated ostium of the nondominant circumflex and a 40% lesion in the mid section of the obtuse marginal. This coronary artery disease is
inconsistent with disease severe enough to cause severe cardiomyopathy.
2. Normal filling pressures (LVEDP = 8 mmHg, PCWP = 8 mmHg at 62.6 kg), possibly inappropriately low given degree of systolic dysfunction.
3. Aortic valve stenosis, moderate by gradient, severe by valve area. This is possibly low-flow, low gradient aortic stenosis versus pseudo stenosis.
RECOMMENDATIONS:
1. Expectant management after cardiac catheterization via right radial/antecubital approach.
2. Limited weight bearing on the right wrist for one week.
3. Hold further diuresis, allow to be net positive.
4. Primary prevention with nonobstructive coronary artery disease.
5. Plan for JOE guided cardioversion tomorrow.
6. The patient would likely be a good candidate for ablation/rhythm control.
Copy to: Rafa Choudhury M.D., Ph.D., Idalia Barksdale M.D.
Pratik Ferro, DO, FACC, FACP
[2023-04-07] MEDS: NSS 1000 IV (13:43)
--- NOTE | 2023-04-07 13:46 | PTCARENOTE ---
Assumed care of pt upon trasfer from CCL post heart cath. Pt arrives awake and alert, Ox3. VSS, Cm continues to show AF90's. Right radial band intact with 8 ml's of air, POX 96%, right brachial dsg remains CDI. Pt receiving protocol IV, right
extremity precautions reviewed. Pt denies any pain or discomfort at this time.
--- NOTE | 2023-04-07 15:08 | W.PN.HOSP.TC ---
Today's Communication/Plan
-
continue current plan of care as outlined
Assessment / Plan
Assessment / Plan
Assessment:
New Cardiomyopathy, possibly related to A. Fib w RVR
Acute systolic heart failure
- Echo 04/04: EF 20%, moderate MR, moderate (25/15, 1.3), mild/mod TR, PASP 50.
- continue IV Lasix - requires intensive monitoring of lytes/labs, I/Os
- continue GDMT as possible: BB, possibly add FARHEEN
Bilateral pleural effusions
- s/p thoracentesis 04/04 (Right, 1450 cc) and 04/05 (Left, 700 cc)
Acute hypoxic respiratory insufficiency d/t above
- wean O2 as able
Persistent Atrial Fibrillation
- s/p Cardizem gtt
- continue BB
- continue Eliquis
- for JOE/CV tomorrow
Moderate MR, moderate , mild/mod TR.
- await JOE
Non-VA Troponin elevation in setting of rapid Afib and CHF
Essential HTN
- follow BP with med changes
Hyponatremia
Hypokalemia
- replete K+ prn
- follow BMP
Elevated LFTs from passing congestion/CHF
DVT ppx: Eliquis
Code: Full
Anticipated Discharge: 24 - 48 hours
Subjective/Interval History
-
Date of Service: April 07, 2023
late entry, seen prior to Cath, patient denied any complaints this morning around 930 AM
Objective Data
-
Labs:
Laboratory Results
04/07/23 04/07/23
04:37 12:30
WBC 7.0
Hgb 15.0
Hct 43.2
Plt Count 292
APTT 133.6 H Pending
Sodium 133 L
Potassium 3.6
Chloride 95 L
Carbon Dioxide 30
BUN 38 H
Creatinine 1.1
Glucose 96
Calcium 8.9
Total Bilirubin 0.9
AST 25
ALT 58 H
Alkaline Phosphatase 67
Vital Signs:
Vital Signs
Temp Pulse Resp BP Pulse Ox
97.4 F 97 18 107/94 87
04/07/23 11:00 04/07/23 15:00 04/07/23 11:00 04/07/23 14:30 04/07/23 15:00
I&O
04/06/23 04/07/23 04/08/23
06:59 06:59 06:59
Intake Total 720 / 720 612 / 612
Output Total 100 / 100
Balance 620 / 620 612 / 612
Physical Exam
-
General: No Apparent Distress
HEENT: Normocephalic and Atraumatic
Respiratory: Negative Wheezes or Rales
Cardiac: Regular Rhythm and S1/S2
GI: Soft and Nontender
Genito-urinary: No Costovertebral Tender
Musculoskeletal: No Edema
Neuro: AO x 3
Psych: Calm
Data Reviewed
-
Total Time Spent with Patient (in minutes): 51
Labs: Labs Reviewed by me
--- NOTE | 2023-04-07 16:02 | CM ---
priced entresto with pts perscript plan- $ 159/month (tier #)
mandeep $11/month
pt agreeable to this serna
[2023-04-07] MEDS: ENTRESTO 24 MG/26 MG PO (22:15)
[2023-04-07] MEDS: ELIQUIS 5 MG PO (22:16)
[2023-04-08 04:45] VITALS: BP 105/83
[2023-04-08 04:53] VITALS: BMI 21.4
[2023-04-08 05:09] LABS: Hematocrit 40.7 % (39.0-52.0); Mean Corp Hgb Conc. 34.4 g/dL (33.0-37.0); Mean Corpuscular Hgb 32.9 pg (27.0-31.0); Mean Corpuscular Volume 95.5 fL (80.0-94.0); Mean Platelet Volume 9.2 fL (7.4-10.4); Platelet Count 274 10^3/uL (130-400); Red Blood Cell Count 4.26 10^6/uL (4.70-6.10); Red Cell Dist. Width 13.2 % (11.5-14.5); White Blood Cell Count 6.7 10^3/uL (4.8-10.8)
[2023-04-08 05:41] LABS: Blood Urea Nitrogen 33 mg/dl (9-20); Carbon Dioxide 29 mmol/L (22-30); Chloride 96 mmol/L (98-107); Estimated Creatinine Clearance 63 ml/min; Glucose 90 mg/dl (70-99); Potassium 4.1 mmol/L (3.5-5.1); Sodium 132 mmol/L (135-145); eGFR > 60.00
--- NOTE | 2023-04-08 05:41 | PTCARENOTE ---
Pt without complaints overnight- R radial and R brachial dressings remained CDI. POC discussed- pt verbalized understanding- sys BP ranged from 80s- low 100s/60s-80s. HR 80s to 100s. Pt aware of NPO status for planned JOE/CV today.
[2023-04-08 07:31] VITALS: BP 90/75
[2023-04-08] MEDS: LASIX IV (08:01)
[2023-04-08] MEDS: ENTRESTO 24 MG/26 MG PO (09:21)
[2023-04-08] MEDS: TOPROL XL PO (09:21)
[2023-04-08] MEDS: ELIQUIS 5 MG PO ×2 (09:24→19:39)
[2023-04-08] MEDS: LOW STRENGTH ASPIRIN 81 MG PO (09:24)
[2023-04-08 11:48] VITALS: BP 119/90
[2023-04-08 14:18] VITALS: BP 133/93
--- NOTE | 2023-04-08 14:38 | PTCARENOTE ---
Rec'd Pt post JOE, A,A+Ox3, no complaints. He remains in A-fib. BP 133/93.
--- NOTE | 2023-04-08 14:50 | W.PN.CD ---
Today's Communication / Plan
-
stop IV lasix
Begin lasix 40qAM
Start digoxin 0.25 mg q 6hr x 2 then 0.125 qd
Impression / Plan
-
Impression/Plan: 77 y/o male with prior isolated episode of AF in 2019 s/p DCCV now admitted with recurrent atrial fibrillation, new cardiomyopathy (LVEF 20%) and decompensated HFrEF.
#Cardiomyopathy
-New diagnosis, unspecified type.
-Echo 04/04: EF 20%, moderate MR, moderate by recent echo (, 1.3), mild/mod TR, PASP 50.
-LV dysfunction may be due to rate related CM
-Continue metoprolol succinate 100mg bid.
-Hold sacubitril/valsartan due to hypotension. Patient may not tolerate, in which case we will use lisinopril 2.5 mg daily. Since BP running in 90 systolic range need to hold off for now
-Coronary angiography yesterday showed mild CAD inconsistent with the degree of LV dysfunction
#Acute HFrEF
-Severe, requiring close monitoring of labs and telemetry.
-S/P thoracentesis for 700 mL of transudative fluid.
- PA pressures, RA pressure and CI all low at cath yesterday. Lasix to be changed to 40mg po qAM
#Afib
-Likely change in classification (persistent rather than paroxysmal).
-Metoprolol succinate for rate control.
-OJE showed ЕКАТЕРИНА thrombus. NO DCCV done and he will need OAT x 4 wks prior to repeat JOE then DCCV if appendage clear
-CHADS2-VASC = 3.
- adding digoxin 0.25 mg q 6 hrs x 2 then 0.125mg daily for rate control help in setting of severe LV dysfunction and borderline BPs
#Valvular HD
-New diagnosis.
-Moderate MR, moderate , mild/mod TR.
-Repeat echocardiogram in 90 days to assess systolic function, valve function under more optimized loading conditions.
#Acute non-ischemic myocardial injury
-In the setting of rapid Afib and CHF.
-Troponin trend = 0.044, 0.047, 0.044. This is not consistent with ACS.
Subjective/Interval History:
Hypotensive overnight. PM dose of sacubitril/valsartan held.
Weight is down 16 lbs from admission.
HR hovering around 100.
DATA:
TTE, 04/04/2023:
CONCLUSIONS
�Severely reduced left ventricular systolic function. Left ventricular ejection
�fraction is 20%.
�Global hypokinesis.
�Mild concentric left ventricular hypertrophy.
�Moderate mitral regurgitation.
�Moderate aortic stenosis (gradients lower in setting of depressed LVEF).
�Peak/mean gradients ar 24/15 mmHg. Using an LVOT 2.1 cm the calculated valve
�area is 1.34 cm2. Mild aortic regurgitation.
�Enlarged right ventricular size. Normal right ventricular systolic function.
�Mild/moderate tricuspid regurgitation. Right heart pressures were moderately
�elevated. Estimated pulmonary artery pressure of 50 mmHg, assuming a right
�atrial pressure of 8 mmHg.
�Pleural effusion present.
�
�No prior study available for comparison.
Physical Exam
Vital Signs/Labs
Vital Signs
Temp Pulse Resp BP Pulse Ox
97.4 F 89 18 90/75 94
04/08/23 11:46 04/08/23 11:46 04/08/23 11:46 04/08/23 09:21 04/08/23 11:46
04/07/23 04/08/23 04/09/23
06:59 06:59 06:59
Actual Weight 138 lb 7.205 oz 140 lb 6.951 oz
04/08/23 04:50
04/08/23 04:50
PT 16.6 Sec (11.4-14.6) H 04/03/23 16:57
INR 1.33 04/03/23 16:57
APTT Cancelled 04/07/23 12:30
Magnesium 2.1 mg/dl (1.6-2.3) 04/07/23 04:37
04/03/23 04/03/23
16:57 17:24
Jdv-P-Awxiwkdpybx Pept 7380 Cancelled
Physical Exam
Constitutional: No acute distress and Comfortable
Cardiovascular: Rhythm/rate is irregular and Systolic murmur present (2/6 murmur)
Respiratory: Respiratory effort normal, Lungs clear to auscul. and Wheeze Absent
GI: Flat and Non tender
Neuro/Psych: AO x 3 and Motor deficits absent
Data Reviewed
-
Date of Service: April 08, 2023
--- NOTE | 2023-04-08 16:31 | W.PN.HOSP.TC ---
Today's Communication/Plan
-
digoxin load and monitor tele
Assessment / Plan
Assessment / Plan
Assessment:
New Cardiomyopathy, possibly related to A. Fib w RVR
Acute systolic heart failure
- Echo 04/04: EF 20%, moderate MR, moderate (25/15, 1.3), mild/mod TR, PASP 50.
- transitioned to PO Lasix
- continue GDMT as possible: BB, possibly add FARHEEN
Bilateral pleural effusions
- s/p thoracentesis 04/04 (Right, 1450 cc) and 04/05 (Left, 700 cc)
Acute hypoxic respiratory insufficiency d/t above
- wean O2 as able
Persistent Atrial Fibrillation
- s/p Cardizem gtt
- continue BB
- continue Eliquis
- JOE 04/08 showed thrombus. CV not performed
- Digoxin load started
Moderate MR, moderate , mild/mod TR.
- JOE: Dilated right ventricle. Mildly decreased right ventricular function.�Mild to moderate mitral regurgitation.�Mild aortic regurgitation.
Non-OR Troponin elevation in setting of rapid Afib and CHF
Essential HTN
- follow BP with med changes
Hyponatremia
Hypokalemia
- replete K+ prn
- follow BMP
Elevated LFTs from passing congestion/CHF
DVT ppx: Eliquis
Code: Full
Anticipated Discharge: 24 - 48 hours
Subjective/Interval History
-
Date of Service: April 08, 2023
s/p JOE showing thrombus, CV was not performed, patient started on digoxin
Objective Data
-
Labs:
Laboratory Results
04/08/23
04:50
WBC 6.7
Hgb 14.0
Hct 40.7
Plt Count 274
Sodium 132 L
Potassium 4.1
Chloride 96 L
Carbon Dioxide 29
BUN 33 H
Creatinine 0.9
Glucose 90
Calcium 9.0
Vital Signs:
Vital Signs
Temp Pulse Resp BP Pulse Ox
97.5 F 107 16 90/75 98
04/08/23 15:32 04/08/23 15:32 04/08/23 15:32 04/08/23 09:21 04/08/23 15:32
I&O
04/07/23 04/08/23 04/09/23
06:59 06:59 06:59
Intake Total 612 / 612 325 / 325
Balance 612 / 612 325 / 325
Physical Exam
-
General: No Apparent Distress
HEENT: Normocephalic and Atraumatic
Respiratory: Negative Wheezes or Rales
Cardiac: Irregular Rhythm
GI: Soft and Nontender
Genito-urinary: No Costovertebral Tender
Neuro: AO x 3
Hematologic / Lymphatic: No Lymphadenopathy
Psych: Calm
Data Reviewed
-
Total Time Spent with Patient (in minutes): 47
Labs: Labs Reviewed by me
[2023-04-08] MEDS: LANOXIN 250 MCG PO ×2 (16:34→19:51)
[2023-04-08 18:56] VITALS: BP 115/80
[2023-04-08] MEDS: ENTRESTO 24 MG/26 MG 1 TAB PO (19:39)
[2023-04-08] MEDS: SENOKOT 8.59999999999999964 MG PO (21:14)
--- NOTE | 2023-04-08 21:41 | PTCARENOTE ---
Assumed care of patient at change of shift. Tele monitor shows Afib w/ occasional PVCs. HR in the 80-110's at rest. VSS. Denies any pain or SOB. Patient c/o constipation, last BM approx 2 days ago per patient. Jennifer GOMES notified, and
orders obtained. See MAR for further details. Right radial site AVE and ecchymotic w/ positive radial pulse. Patient educated on activity restrictions, and verbalized understanding. Call whitfield in reach.
[2023-04-08 22:33] VITALS: BP 105/63
[2023-04-09] VITALS (10 sets, daily range): BP systolic 75–112; BP diastolic 52–77; BMI 21.3
[2023-04-09 05:27] LABS: Blood Urea Nitrogen 22 mg/dl (9-20); Calcium 8.7 mg/dl (8.4-10.2); Carbon Dioxide 26 mmol/L (22-30); Chloride 102 mmol/L (98-107); Estimated Creatinine Clearance 63 ml/min; Glucose 84 mg/dl (70-99); Potassium 4.2 mmol/L (3.5-5.1); Sodium 132 mmol/L (135-145); eGFR > 60.00
[2023-04-09] MEDS: LOW STRENGTH ASPIRIN PO (08:07)
--- NOTE | 2023-04-09 08:23 | W.PN.CD ---
Today's Communication / Plan
-
Continue metoprolol succinate 100mg daily (hold for SBP <90)
Continue entresto 24/26mg bid (hold for SBP <90)
Add farxiga 10mg daily
Continue digoxin.
Trend BP and HR.
Impression / Plan
-
Impression/Plan: 77 y/o male with prior isolated episode of AF in 2019 s/p DCCV now admitted with recurrent atrial fibrillation, new cardiomyopathy (LVEF 20%) and decompensated HFrEF.
#Cardiomyopathy: non-ischemic
-Echo 04/04: EF 20%, moderate MR, moderate by recent echo (, 1.3), mild/mod TR, PASP 50.
-Cath: non-obstructive CAD
-LV dysfunction may be due to rate related CM
-Continue metoprolol succinate 100mg daily (hold for SBP <90)
-Continue entresto 24/26mg bid (hold for SBP <90)
-add farxiga 10mg daily
-will hold off on aldactone given BP limitations
#Acute HFrEF: improved s/p IV lasix
-also s/p thoracentesis for 700 mL of transudative fluid
- cont lasix 40mg PO daily
#Afib
-seems persistent now
-Metoprolol succinate for rate control: 100mg daily, limited by BP
-digoxin added
-JOE showed ЕКАТЕРИНА thrombus. NO DCCV done and he will need OAT x 4 wks prior to repeat JOE then DCCV if appendage clear
-CHADS2-VASC = 3.
-eliquis 5mg bid
#Valvular HD
-New diagnosis.
-Moderate MR, moderate , mild/mod TR.
-Repeat echocardiogram in 90 days to assess systolic function, valve function under more optimized loading conditions.
#Acute non-ischemic myocardial injury
-In the setting of rapid Afib and CHF.
-Troponin trend = 0.044, 0.047, 0.044. This is not consistent with ACS.
# Non-obstructive CAD
-ASA stopped since on eliquis for A fib
-lipid panel added
-add crestor 20mg daily
Subjective/Interval History:
BP looks better. No palps, SOB, CP.
DATA:
TTE, 04/04/2023:
CONCLUSIONS
�Severely reduced left ventricular systolic function. Left ventricular ejection
�fraction is 20%.
�Global hypokinesis.
�Mild concentric left ventricular hypertrophy.
�Moderate mitral regurgitation.
�Moderate aortic stenosis (gradients lower in setting of depressed LVEF).
�Peak/mean gradients ar 24/15 mmHg. Using an LVOT 2.1 cm the calculated valve
�area is 1.34 cm2. Mild aortic regurgitation.
�Enlarged right ventricular size. Normal right ventricular systolic function.
�Mild/moderate tricuspid regurgitation. Right heart pressures were moderately
�elevated. Estimated pulmonary artery pressure of 50 mmHg, assuming a right
�atrial pressure of 8 mmHg.
�Pleural effusion present.
�
�No prior study available for comparison.
Physical Exam
Vital Signs/Labs
Vital Signs
Temp Pulse Resp BP Pulse Ox
97.4 F 106 16 111/75 99
04/09/23 07:33 04/09/23 07:33 04/09/23 07:33 04/09/23 07:34 04/09/23 07:33
04/08/23 04/09/23 04/10/23
06:59 06:59 06:59
Actual Weight 63.7 kg 63.5 kg
04/08/23 04:50
04/09/23 04:06
PT 16.6 Sec (11.4-14.6) H 04/03/23 16:57
INR 1.33 04/03/23 16:57
APTT Cancelled 04/07/23 12:30
Magnesium 2.1 mg/dl (1.6-2.3) 04/07/23 04:37
04/03/23 04/03/23
16:57 17:24
Kyd-Y-[id number] Pept 7380 Cancelled
Physical Exam
Constitutional: No acute distress and Comfortable
EENT: Moist mucous membranes
Cardiovascular: Pedal edema is absent, JVD pressure is normal, Rhythm/rate is irregular and Systolic murmur present
Respiratory: Respiratory effort normal and Lungs clear to auscul.
GI: Soft, Distention absent and Flat
Neuro/Psych: AO x 3
Data Reviewed
-
Date of Service: April 09, 2023
EKG: Other (Tele: A fib 80s-90s, RVR with activity)
Labs: Labs Reviewed by me
[2023-04-09] MEDS: ELIQUIS 5 MG PO ×2 (08:50→20:28)
[2023-04-09] MEDS: LASIX 40 MG PO (08:50)
[2023-04-09] MEDS: ENTRESTO 24 MG/26 MG 1 TAB PO ×2 (08:50→20:28)
[2023-04-09] MEDS: TOPROL XL 100 MG PO (08:51)
[2023-04-09] MEDS: SENOKOT 8.59999999999999964 MG PO (08:51)
[2023-04-09] MEDS: FLUSH (NSS) 1 FLUSH IV (08:52)
[2023-04-09] MEDS: FARXIGA 10 MG PO (08:52)
[2023-04-09 09:35] LABS: HDL Cholesterol 38 mg/dl; LDL Cholesterol, Calculated 116 mg/dl; Total Cholesterol 171 mg/dl (50-199); Triglyceride 89 mg/dl (10-149); Very Low Density Lipoprotein 17 mg/dl (0-30)
--- NOTE | 2023-04-09 09:36 | PTCARENOTE ---
Received patient this morning oob in his room, feels well and offers no complaints. Remains in AF, rate in the 110's-120's. Seen by Dr. Choudhury and parameters on his medications adjusted so that he can receive heart failure meds if his BP is > 90.
Reviewed plan of care with the patient and he states his understanding.
--- NOTE | 2023-04-09 11:37 | CM ---
CM following for DC planning needs.
Met w/ patient while he was ambulating ad iaris around yan.
Pt. reports that he feels well.
Anticipated DC plan is for home without needs.
Coupons for Entresto + Farxiga placed in chart (free 30 d).
Cm to [facility]. to follow.
[2023-04-09] MEDS: LANOXIN 125 MCG PO (12:20)
--- NOTE | 2023-04-09 14:12 | W.PN.HOSP.TC ---
Today's Communication/Plan
-
monitor BP
possible DC in 24 hours
Assessment / Plan
Assessment / Plan
Assessment:
New Cardiomyopathy, possibly related to A. Fib w RVR
Acute systolic heart failure
- Echo 04/04: EF 20%, moderate MR, moderate (25/15, 1.3), mild/mod TR, PASP 50.
- transitioned to PO Lasix
- continue GDMT as possible: BB, Entresto, Farxiga
Bilateral pleural effusions
- s/p thoracentesis 04/04 (Right, 1450 cc) and 04/05 (Left, 700 cc)
Acute hypoxic respiratory insufficiency d/t above
- wean O2 as able
Persistent Atrial Fibrillation
- s/p Cardizem gtt
- continue BB
- continue Eliquis
- JOE 04/08 showed thrombus. CV not performed
- continue Digoxin
Non-obstructive CAD
- continue statin
Moderate MR, moderate , mild/mod TR.
- JOE: Dilated right ventricle. Mildly decreased right ventricular function.�Mild to moderate mitral regurgitation.�Mild aortic regurgitation.
Non-AL Troponin elevation in setting of rapid Afib and CHF
Essential HTN
- follow BP with med changes
Hyponatremia
Hypokalemia
- replete K+ prn
- follow BMP
Elevated LFTs from passing congestion/CHF
DVT ppx: Eliquis
Code: Full
Anticipated Discharge: Within 24 hours
Subjective/Interval History
-
Date of Service: April 09, 2023
no new complaints
Objective Data
-
Labs:
Laboratory Results
04/09/23
04:06
Sodium 132 L
Potassium 4.2
Chloride 102
Carbon Dioxide 26
BUN 22 H
Creatinine 0.9
Glucose 84
Calcium 8.7
Vital Signs:
Vital Signs
Temp Pulse Resp BP Pulse Ox
98.2 F 93 16 112/67 98
04/09/23 11:12 04/09/23 12:20 04/09/23 11:12 04/09/23 11:14 04/09/23 11:12
I&O
04/08/23 04/09/23 04/10/23
06:59 06:59 06:59
Intake Total 325 / 325 240 / 240 720 / 720
Balance 325 / 325 240 / 240 720 / 720
Physical Exam
-
General: Well Developed and Well Nourished
HEENT: Normocephalic and Atraumatic
Respiratory: Negative Wheezes or Rales
Cardiac: Regular Rhythm and S1/S2
GI: Soft and Nontender
Genito-urinary: No Costovertebral Tender
Musculoskeletal: No Edema
Neuro: AO x 3
Psych: Calm
Data Reviewed
-
Total Time Spent with Patient (in minutes): 45
Labs: Labs Reviewed by me
[2023-04-09] MEDS: CRESTOR 20 MG PO (17:56)
[2023-04-09] MEDS: SENOKOT PO (20:28)
--- NOTE | 2023-04-10 00:22 | PTCARENOTE ---
Received pt at handoff. AOX3. Assessment noted as documented. R radial AVE. R brachial c/d/i. No c/o pain/discomfort. Currently resting in bed; call [facility] w/in reach.
[2023-04-10 04:09] VITALS: BP 94/69
[2023-04-10 04:16] VITALS: BMI 21.2
[2023-04-10 05:24] LABS: Blood Urea Nitrogen 19 mg/dl (9-20); Calcium 8.9 mg/dl (8.4-10.2); Carbon Dioxide 28 mmol/L (22-30); Chloride 102 mmol/L (98-107); Estimated Creatinine Clearance 70 ml/min; Glucose 87 mg/dl (70-99); Potassium 4.4 mmol/L (3.5-5.1); Sodium 133 mmol/L (135-145); eGFR > 60.00
--- NOTE | 2023-04-10 07:27 | W.PN.CD ---
Today's Communication / Plan
-
OK for home today. F/u with Dr Choudhury or [facility] in 2-3 wks
Impression / Plan
-
Impression/Plan: 77 y/o male with prior isolated episode of AF in 2019 s/p DCCV now admitted with recurrent atrial fibrillation, new cardiomyopathy (LVEF 20%) and decompensated HFrEF.
#Cardiomyopathy: non-ischemic
-Echo 04/04: EF 20%, moderate MR, moderate by recent echo (, 1.3), mild/mod TR, PASP 50.
-Cath: non-obstructive CAD
-LV dysfunction may be due to rate related CM
-Continue metoprolol succinate 100mg daily (hold for SBP <90)
-Continue entresto 24/26mg bid (hold for SBP <90)
-add farxiga 10mg daily
-will hold off on aldactone given BP limitations
- I told pt his goal wt is 140 lbs and if he gets more than 5 lbs up he needs to call office so diuretics can be adjusted. Would use lasix 40qd as starting dose at home. He will continue to monitor sodium content of his food.
#Acute HFrEF: improved s/p IV lasix
-also s/p thoracentesis for 700 mL of transudative fluid
- cont lasix 40mg PO daily
#Afib
-may be persistent now
-Metoprolol succinate for rate control: 100mg daily, limited by BP
-digoxin added
-JOE showed ЕКАТЕРИНА thrombus. NO DCCV done and he will need OAT x 4 wks prior to repeat JOE then DCCV if appendage clear
-CHADS2-VASC = 3.
-eliquis 5mg bid
#Valvular HD
-New diagnosis.
-Moderate MR, moderate , mild/mod TR.
-Repeat echocardiogram in 90 days to assess systolic function, valve function under more optimized loading conditions.
#Acute non-ischemic myocardial injury
-In the setting of rapid Afib and CHF.
-Troponin trend = 0.044, 0.047, 0.044. This is not consistent with ACS.
# Non-obstructive CAD
-ASA stopped since on eliquis for A fib
-lipid panel added
-add crestor 20mg daily
Subjective/Interval History:
BP looks better. No palps, SOB, CP.
DATA:
TTE, 04/04/2023:
CONCLUSIONS
�Severely reduced left ventricular systolic function. Left ventricular ejection
�fraction is 20%.
�Global hypokinesis.
�Mild concentric left ventricular hypertrophy.
�Moderate mitral regurgitation.
�Moderate aortic stenosis (gradients lower in setting of depressed LVEF).
�Peak/mean gradients ar 24/15 mmHg. Using an LVOT 2.1 cm the calculated valve
�area is 1.34 cm2. Mild aortic regurgitation.
�Enlarged right ventricular size. Normal right ventricular systolic function.
�Mild/moderate tricuspid regurgitation. Right heart pressures were moderately
�elevated. Estimated pulmonary artery pressure of 50 mmHg, assuming a right
�atrial pressure of 8 mmHg.
�Pleural effusion present.
�
�No prior study available for comparison.
Physical Exam
Vital Signs/Labs
Vital Signs
Temp Pulse Resp BP Pulse Ox
97.6 F 77 16 94/69 98
04/10/23 04:08 04/10/23 04:09 04/10/23 04:08 04/10/23 04:09 04/10/23 04:08
04/09/23 04/10/23 04/11/23
06:59 06:59 06:59
Actual Weight 139 lb 15.896 oz 139 lb 1.787 oz
04/08/23 04:50
04/10/23 04:14
PT 16.6 Sec (11.4-14.6) H 04/03/23 16:57
INR 1.33 04/03/23 16:57
APTT Cancelled 04/07/23 12:30
Magnesium 2.1 mg/dl (1.6-2.3) 04/07/23 04:37
Triglycerides 89 mg/dl (10-149) 04/09/23 04:06
LDL Cholesterol, Calc 116 mg/dl 04/09/23 04:06
VLDL Cholesterol, Calc 17 mg/dl (0-30) 04/09/23 04:06
HDL Cholesterol 38 mg/dl 04/09/23 04:06
04/03/23 04/03/23
16:57 17:24
Jze-J-Hdtjdbvebne Pept 7380 Cancelled
Physical Exam
Constitutional: No acute distress and Comfortable
Cardiovascular: Rhythm/rate is irregular and Systolic murmur present (1/6 aortic outflow murmur)
Respiratory: Respiratory effort normal, Lungs clear to auscul. and Wheeze Absent
GI: Soft and Flat
Neuro/Psych: AO x 3 and Motor deficits absent
Data Reviewed
-
Date of Service: April 10, 2023
[2023-04-10 07:42] VITALS: BP 106/73
[2023-04-10] MEDS: LASIX 40 MG PO (09:31)
[2023-04-10] MEDS: SENOKOT 8.59999999999999964 MG PO (09:31)
[2023-04-10] MEDS: FARXIGA 10 MG PO (09:31)
[2023-04-10] MEDS: ELIQUIS 5 MG PO (09:31)
[2023-04-10] MEDS: TOPROL XL 100 MG PO (09:31)
[2023-04-10] MEDS: ENTRESTO 24 MG/26 MG 1 TAB PO (09:31)
--- NOTE | 2023-04-10 11:46 | CM ---
CM following for DC planning needs.
Observed patient again ambulating ad irais around yan.
Pt. feels prepared for DC to home. There are no identified DC needs.
Plan is for home, no needs.
[2023-04-10 11:50] VITALS: BP 95/60
--- NOTE | 2023-04-10 12:43 | W.PN.HOSP.TC ---
Today's Communication/Plan
-
dc home
Assessment / Plan
Assessment / Plan
Assessment:
New Cardiomyopathy, possibly related to A. Fib w RVR
Acute systolic heart failure
- Echo 04/04: EF 20%, moderate MR, moderate (25/15, 1.3), mild/mod TR, PASP 50.
- transitioned to PO Lasix
- continue GDMT as possible: BB, Entresto, Farxiga
Bilateral pleural effusions
- s/p thoracentesis 04/04 (Right, 1450 cc) and 04/05 (Left, 700 cc)
Acute hypoxic respiratory insufficiency d/t above
- wean O2 as able
Persistent Atrial Fibrillation
- s/p Cardizem gtt
- continue BB
- continue Eliquis
- JOE 04/08 showed thrombus. CV not performed
- continue Digoxin
Non-obstructive CAD
- continue statin
Moderate MR, moderate , mild/mod TR.
- JOE: Dilated right ventricle. Mildly decreased right ventricular function.�Mild to moderate mitral regurgitation.�Mild aortic regurgitation.
Non-MT Troponin elevation in setting of rapid Afib and CHF
Essential HTN
- follow BP with med changes
Hyponatremia
Hypokalemia
- replete K+ prn
- follow BMP
Elevated LFTs from passing congestion/CHF
DVT ppx: Eliquis
Code: Full
More than 30 minutes spent in discharge including
Final examination of the patient
Summarizing hospital stay
Instructions for continuing care to all relevant caregivers
Preparation of discharge records, prescriptions, and referral forms
Total time spent (in minutes): 40
Anticipated Discharge: Today
Subjective/Interval History
-
Date of Service: April 10, 2023
no new complaints
Objective Data
-
Labs:
Laboratory Results
04/10/23
04:14
Sodium 133 L
Potassium 4.4
Chloride 102
Carbon Dioxide 28
BUN 19
Creatinine 0.8
Glucose 87
Calcium 8.9
Vital Signs:
Vital Signs
Temp Pulse Resp BP Pulse Ox
97.9 F 84 20 106/73 97
04/10/23 11:47 04/10/23 09:31 04/10/23 11:47 04/10/23 09:31 04/10/23 11:47
I&O
04/09/23 04/10/23 04/11/23
06:59 06:59 06:59
Intake Total 240 / 240 1200 / 1200
Balance 240 / 240 1200 / 1200
Physical Exam
-
General: No Apparent Distress
HEENT: Normocephalic and Atraumatic
Respiratory: Negative Wheezes or Rales
Cardiac: Regular Rhythm and S1/S2
GI: Soft and Nontender
Genito-urinary: No Costovertebral Tender
Neuro: AO x 3
Psych: Calm
Data Reviewed
-
Total Time Spent with Patient (in minutes): 45
Labs: Labs Reviewed by me
--- NOTE | 2023-04-10 12:47 | W.DS.TRANS ---
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
-
Discharge Instructions:
Sleep Apnea Risk Low
Discharge Diagnosis/Procedures Cardiomyopathy from A. Fib. cardiac
catheterization 04/07, JOE 04/08
Diet Low Cholesterol,2 Gram Sodium
Activity As tolerated
Bathing Restrictions None
Instructions: *CBC Heart Failure Instructions
Stand-Alone Forms: DC Instructions- Cath/EP Lab
Changes to Home Medications: Yes
Discharge Medications:
DC Medications w/original date entered in [facility]
apixaban 5 mg tablet 5 mg PO BID #60 tabs 04/10/23
dapagliflozin propanediol 10 mg tablet (Farxiga) 10 mg PO DAILY #30 tabs 04/10/23
digoxin 125 mcg (0.125 mg) tablet 125 mcg PO NOON #30 tabs 04/10/23
furosemide 40 mg tablet 40 mg PO DAILY #30 tabs 04/10/23
metoprolol succinate 50 mg tablet,extended release 24 hr 100 mg PO DAILY #60 tabs 04/10/23
rosuvastatin 20 mg tablet 20 mg PO QPM #30 tabs 04/10/23
sacubitril 24 mg-valsartan 26 mg tablet (Entresto) 1 tab PO BID #60 tabs 04/10/23
Home Medication Changes
BB doubled
Pending Results: No
Total time spent discharging patient (in min): 45
[2023-04-10] MEDS: LANOXIN 125 MCG PO (14:01)
--- NOTE | 2023-04-21 15:48 | ED.GENMED ---
History of Present Illness
General
Chief Complaint: Heart Rate Problem
Source: patient
Exam Limitations: none
Time Seen by Provider: 04/03/23 16:58
Travel History
Have you had any contact with someone who has COVID-19?: No
Do you have any symptoms of coronavirus? Fever > 100 degrees, chills, cough, shortness of breath, sore throat, loss of taste or smell, muscle aches, or headache?: No
History of Present Illness
History of Present Illness:
Patient presents with shortness of breath and dyspnea on exertion. Progressive over a week to 10 days. Occasional chest pressure. No palpitations no syncope no fever or cough.
Past History
Past History
ED Past Medical History: Arrthythmia
Social History
Tobacco: Non-smoker
Review of Systems
Review of Systems
All Other Systems: Not applicable
Constitutional: Denies fever
Phy Exam
Physical Exam
Physical Exam:
GENERAL: Alert and oriented in no apparent distress
EYE: Orbits normal.
NECK: Supple
CARDIAC: Tachycardic and irregular no murmur
LUNGS: Rales one third up
ABDOMEN: Soft, without focal tenderness or distention
NEUROLOGICAL: Alert and oriented , grossly non-focal
SKIN: Warm and dry, no rash or lesion, no discoloration, skin intact.
MUSCULOSKELETAL: No edema,no deformity.Good color
PSYCH: Normal and appropriate interaction.
Course
Orders/Labs/Results
Orders:
Orders
04/03/23 16:35
Electrocardiogram (*1) Urgent
Reason for Study: Atrial Fibrillation
EKG- Treatment ONCE
04/03/23 16:57
Complete Blood Count/With Diff Urgent
Comprehensive Metabolic Panel Urgent
NT-proBNP Urgent
Comment: ADD ON
Protime/PTT Urgent
TSH Reflex To Free T4 Urgent
Troponin I Urgent
04/03/23 17:24
Cardiac Monitoring- Treatment ONCE
IV Insert/Care/Rem.- Treatment PRN
Diltiazem 125 mg/125 ml Nss [Cardizem] 125 mg in 125 ml IV NOW
Initial dose in mg/hr, then titrate:: 5
Titrate to keep:: Heart rate 80-100 bpm
Titrate by mg/hr:: 5 mg/hr
Frequency of titrations (minutes):: 15
Maximum dose in mg/hr:: 15
Diltiazem HCl [Cardizem] 10 mg IV NOW STA
CR Chest - 2 Views Urgent
Comment:
Reason For Exam: sob
Pulse Ox/cont/shift [RESP] Stat
Quantity: 1
04/03/23 17:27
Add On- LAB Urgent
Tests Added?: bnp
04/03/23 18:43
Furosemide [Lasix] 40 mg IV NOW STA
04/03/23 19:52
Admit/Transfer Patient As Directed
Co-Sign Provider:
Level of Care: Inpatient admission
Assign to:: IVU
Physician / Group: Noah
Diagnosis: A-Fib, CHF
Reason for Hospitalization: A-Fib, CHF
Expected length of stay greater than two midnights?: Yes
ELOS- Estimated Length of Stay in days: 2
I certify the patient meets the requirements for IP care: Yes
04/03/23 19:53
Code Status As Directed
Resuscitation Status: Full Code
04/03/23 20:45
Acetaminophen [Tylenol] 650 mg PO Q4HPRN PRN
Apixaban [Eliquis] 5 mg PO BID
Nitroglycerin Sublingual [Nitrostat (Sublingual)] 0.4 mg SL [id number] PRN
04/03/23 20:45
CARDIOLOGY CONSULT Routine
Consulting Provider: Tong Duran
Was physician already notified: Yes
Reason for consult: A-Fib, CHF
Activity As Directed
Activity Level: Ambulate
Bladder Scan As Directed
Follow Bladder Retention/Intermittent Cath Algorithm?: Yes
PRN if no void in __ hours: 6
Frequency: Per Retention Algorithm
If Bladder Scan Result >: 400
then:: Straight cath
EKG with chest pain [ECG as needed] As Directed
ECG as needed for:: Chest Pain
I/O [Intake/ Output] As Directed
Frequency: Per unit guidelines
Orthostatic Vital Signs As Directed
Orthostatic VS Frequency: BID
Records Request [Obtain Records] As Directed
Dates of Information to be Released: Most Recent
Type of Information Requested: Entire Record
Obtain Records from: [facility]
Straight Cath As Directed
Frequency: Per Retention Algorithm
Additional Instructions: straight cath as needed per acute urinary retention algorithm for 24 hrs
Additional Instructions: for bladder scan greater than 400 mL
Vital Signs As Directed
Frequency: Per unit guidelines
Weight As Directed
Frequency: Daily
Oxygen Therapy [O2 Therapy] [RESP] Routine
Titrate/Wean O2 to maintain O2 sat greater than (%): 94
04/04/23 05:57
Complete Blood Count/No Diff IN AM
04/04/23 06:00
EKG [Electrocardiogram (*1)] IN AM
Reason for Study: Chest Pain
Regular
At Your Request: Full Participation
Fluid Restriction: 1440 mL/day (48 oz)
04/04/23 08:00
Aspirin Chewable [Low Strength Aspirin] 81 mg PO DAILY
Furosemide [Lasix] 40 mg IV BID AT 0800,1600
Metoprolol Xl [Toprol Xl] 50 mg PO DAILY
04/04/23 15:00
Echo 2D MMode Doppler [Echo 2D MMode Color/Doppler] IN AM
Reason for Study: CHF
Abnormal Lab Results
04/03/23
16:57
RBC 4.40 L 10^6/uL
(4.70-6.10)
MCV 96.1 H fL
(80.0-94.0)
MCH 33.6 H pg
(27.0-31.0)
Absolute Monos (auto) 0.9 H 10^3/uL
(0.1-0.6)
Monocytes % 12.5 H %
(1.7-9.3)
PT 16.6 H Sec
(11.4-14.6)
BUN 30 H mg/dl
(9-20)
Glucose 125 H mg/dl
(70-99)
AST 71 H U/L
(17-59)
ALT 122 H U/L
(0-50)
Troponin I 0.044 H* ng/ml
04/03/23 16:57
04/03/23 17:24
Vital Signs
Initial and Last Documented VS:
Initial Vital Signs
Temp Pulse Resp BP Pulse Ox
97.8 F 139 22 162/102 96
04/03/23 16:36 04/03/23 16:36 04/03/23 16:36 04/03/23 16:36 04/03/23 16:36
Last Documented Vital Signs
Temp Pulse Resp BP Pulse Ox
97.9 F 83 20 95/60 97
04/10/23 11:47 04/10/23 13:00 04/10/23 11:47 04/10/23 11:50 04/10/23 11:47
MDM/Problems Addressed
Differential Diagnosis Includes:
Atrial fibrillation/RVR with CHF. Admission rate control diuretics
*Radiology
Radiology exam reviewed: preliminary read by ED provider (CHF) and radiology read reviewed (CHF)
*Pulse Oximetry
Patient hypoxic: no
*EKG
Interpreted by ED Provider?: Yes
Interpretation: abnormal
Comparison EKG: no comparison EKG present
Heart Rate: 127
Rate: tachycardiac
Rhythm: a-fib
[place]: normal axis
Interval: normal interval
QRS Pattern: normal QRS
Ischemia: non-specific ST changes
*Non Destructive Testing Technician Interpretation
Rate: tachycardiac
Interpretation: abnormal
Heart Rate: 122
Rhythm: a-fib
*Critical Care Note
Total Time (30-74mins, 75-104mins- exclusive of procedures): Not Applicable
ED Attending Note
-
Portions of this chart may have been created with voice recognition software.� Occasional wrong word or��sound alike� substitutions may have occurred due to the inherent limitations of voice recognition software.
Discharge Plan
Departure
Patient Disposition: Admit
Date of Disposition: 04/03/23
Time of Disposition: 19:12
Presentation/result/management discussed w/ accepting MD/DO: Hospitalist
Discharge Problem:
Atrial fibrillation/RVR, CHF
Interventions
Interventions:
*Risk Screen - Suicide Last Done: 04/03/23 16:52
*General Assessment Last Done: 04/03/23 16:52
*Neglect/Abuse Screening Last Done: 04/03/23 16:52
ED- Fall Risk Assessment Last Done: 04/03/23 16:52
*ED COVID-19 Vaccine History Last Done: 04/03/23 16:52
*Nursing Disposition Last Done: 04/03/23 21:30
ED- Cardiac Assessment Last Done: 04/03/23 16:52
ED- Pulmonary Assessment Last Done: 04/03/23 16:52
Discharge Date and Time
Discharge Date/Time: 04/03/23 21:30
== END 2023-04-10 15:02 | disposition home or self-care (01) | DRG 286 ==
LOC: IVU 20:11
PROVIDERS: Internal Medicine; Internal Medicine Cardiovascular Disease; Nurse Practitioner; Nurse Practitioner Gerontology; Radiology Diagnostic Radiology; Radiology Vascular & Interventional Radiology; ADMITTING PHYSICIAN Hospitalist; ATTENDING PHYSICIAN Internal Medicine; EMERGENCY PHYSICIAN Emergency Medicine; FAMILY PHYSICIAN Family Medicine; OTHER PHYSICIAN Internal Medicine
PROC: 0W993ZX Drainage of Right Pleural Cavity, Percutaneous Approach, Diagnostic (ICD-10-PCS; 2023-04-04)
PROC: 0W9B3ZX Drainage of Left Pleural Cavity, Percutaneous Approach, Diagnostic (ICD-10-PCS; 2023-04-05)
PROC: 4A023N8 Measurement of Cardiac Sampling and Pressure, Bilateral, Percutaneous Approach (ICD-10-PCS; 2023-04-07)
PROC: B2151ZZ Fluoroscopy of Left Heart using Low Osmolar Contrast (ICD-10-PCS; 2023-04-07)
PROC: B2111ZZ Fluoroscopy of Multiple Coronary Arteries using Low Osmolar Contrast (ICD-10-PCS; 2023-04-07)
PROC: B24BZZ4 Ultrasonography of Heart with Aorta, Transesophageal (ICD-10-PCS; 2023-04-08)
DX: I48.19 Other persistent atrial fibrillation (principal); I50.21 Acute systolic (congestive) heart failure; I5A Non-ischemic myocardial injury (non-traumatic); E87.1 Hypo-osmolality and hyponatremia; R09.02 Hypoxemia; R06.89 Other abnormalities of breathing; Z79.01 Long term (current) use of anticoagulants; I42.9 Cardiomyopathy, unspecified; E87.6 Hypokalemia
CPT/HCPCS: 88305; 32555; 71045; 71046; 80048; 80053; 80061; 82248; 83036; 83615; 83735; 83880; 83986; 84155; 84157; 84443; 84484; 85025; 85027; 85610; 85730; 87015; 87070; 87205; 88112; 88341; 88342; 89051; 93005; 93306; 93312; 93320; 93325; 93460; C1894; Q9967

== ENCOUNTER 2023-05-07 06:54 | Day surgery (SDC) | payer MEDICARE, OTHER, SELFPAY ==
--- NOTE | 2023-05-07 10:05 | ITS.CL.CARDI ---
Occupational Therapy Manager - Cardioversion
Cardioversion
Procedure Report:
Date of Procedure: 05/07/2023
Procedure: Cardioversion.
Indication: Symptomatic atrial fibrillation.
Performing Physician: Cat Mena MD
Technique: The patient was brought to the holding area. Signed informed consent was obtained. A time out was called and performed. The patient was sedated by a member of the anesthesia service. Anticoagulation status was reviewed and was
appropriate.JOE was done and confirmed that lack of suspicion for thrombus. R-2 pads were placed anteriorly and posteriorly. A 200 J synchronized biphasic shock restored normal sinus rhythm. There were no complications.
Conclusion: Uncomplicated cardioversion from atrial fibrillation to sinus bradycardia.
Recommendation: Routine post cardioversion care. Continue intermodal customer service anticoagulation.
cc: Macey
== END 2023-05-07 09:05 | disposition home or self-care (01) ==
LOC: CATH 06:54
PROVIDERS: ATTENDING PHYSICIAN Internal Medicine Cardiovascular Disease
DX: I48.0 Paroxysmal atrial fibrillation (principal); I08.3 Combined rheumatic disorders of mitral, aortic and tricuspid valves; R06.02 Shortness of breath; I10 Essential (primary) hypertension; I25.10 Atherosclerotic heart disease of native coronary artery without angina pectoris; Z79.84 Long term (current) use of oral hypoglycemic drugs; Z79.01 Long term (current) use of anticoagulants
CPT/HCPCS: 93312; 93320; 93325; 92960; 93005

== ENCOUNTER → 2023-08-20 08:03 | Outpatient (REF) | payer MEDICARE, OTHER, SELFPAY | LOC: RCS 08:03 | PROVIDERS: ATTENDING PHYSICIAN Internal Medicine; FAMILY PHYSICIAN Student in an Organized Health Care Education/Training Program | DX: I48.19 Other persistent atrial fibrillation (principal); I42.8 Other cardiomyopathies; I34.0 Nonrheumatic mitral (valve) insufficiency; I35.0 Nonrheumatic aortic (valve) stenosis | CPT/HCPCS: 93306 ==

== ENCOUNTER → 2024-12-27 07:05 | Outpatient (REF) | payer MEDICARE, OTHER, SELFPAY | LOC: RCS 07:05 | PROVIDERS: ATTENDING PHYSICIAN Internal Medicine; FAMILY PHYSICIAN Student in an Organized Health Care Education/Training Program | DX: I50.32 Chronic diastolic (congestive) heart failure (principal); I35.0 Nonrheumatic aortic (valve) stenosis; I42.8 Other cardiomyopathies; I34.0 Nonrheumatic mitral (valve) insufficiency; I35.1 Nonrheumatic aortic (valve) insufficiency | CPT/HCPCS: 93306 ==